=== PATIENT | female | born 1950 | race Caucasian/White ===

== ENCOUNTER → 2016-04-15 17:18 | Outpatient (CLI) | payer MEDICARE, OTHER | END | disposition home or self-care (01) | LOC: D.MAMMO 15:45 | DX: Z12.31 Encounter for screening mammogram for malignant neoplasm of breast (principal) ==

== ENCOUNTER → 2017-05-19 14:36 | Outpatient (CLI) | payer MEDICARE, OTHER | END | disposition home or self-care (01) | LOC: D.MAMMO 04-16 09:30 | DX: Z12.31 Encounter for screening mammogram for malignant neoplasm of breast (principal) ==

== ENCOUNTER 2018-07-09 09:00 | Outpatient (CLI) | payer MEDICARE, OTHER | END 2018-07-09 10:00 | disposition home or self-care (01) | LOC: D.MAMMO 09:00 | PROVIDERS: ATTEND Family Medicine | DX: Z12.31 Encounter for screening mammogram for malignant neoplasm of breast (principal) ==

== ENCOUNTER → 2018-07-20 11:02 | Outpatient (CLI) | payer MEDICARE, OTHER ==
[~2018-07-20 11:02] MED LIST: ASPIRIN81 MG PO; BETAPACE 80 MG80 MG PO; BISOPROLOL-HCTZ1 TA5 PO; HYDROCODON-ACE1 EA10 PO; LISINOPRIL20 MG PO; NORVASC5 MG PO; PLAVIX75 MG PO; XANAX0.25 MG PO
[2018-07-20 11:40] LABS: BASOPHILS 0.2 % (0-2); EOSINOPHILS 1.2 % (0-7); HEMATOCRIT 45.7 % (36.0-48.0); HEMOGLOBIN 16.4 g/dL (12-16); IMMATURE GRANULOCYTES 0.2 % (0-5); LYMPHOCYTES 28.8 % (15-50); MCH 34.2 pg (26.0-34.0); MCHC 35.9 g/dL (31.0-37.0); MCV 95.2 fL (80.0-100.0); MEAN PLATELET VOLUME 9.5 fL (7.4-10.4); MONOCYTES 8.1 % (2-11); NEUTROPHILS 61.5 % (40-80); PLATELET COUNT 253 10x3/uL (130-400)
[2018-07-20 11:49] LABS: ALBUMIN 3.5 g/dL (3.4-5.0); ANION GAP 15.1 mmol/L (8-16); BILIRUBIN - TOTAL 0.52 mg/dL (0.2-1.3); CALCIUM 9.6 mg/dL (8.5-10.1); CARBON DIOXIDE 29.4 mmol/L (21.0-32.0); CREATININE - SERUM 0.9 mg/dL (0.6-1.3); POTASSIUM - SERUM 3.5 mmol/L (3.5-5.1)
[2018-08-04 10:17] VITALS: BMI 24.3
== END | disposition home or self-care (01) ==
LOC: D.LAB 09:45 → D.CT 11:00 → D.LAB 11:02
PROVIDERS: ATTEND Internal Medicine Gastroenterology
DX: D49.0 Neoplasm of unspecified behavior of digestive system (principal)

== ENCOUNTER 2018-07-27 07:40 | Inpatient (IN) | payer MEDICARE, OTHER ==
[2018-07-26 12:20] LABS: BASOPHILS 0.2 % (0-2); EOSINOPHILS 1.4 % (0-7); HEMATOCRIT 42.7 % (36.0-48.0); HEMOGLOBIN 15.5 g/dL (12-16); LYMPHOCYTES 25.1 % (15-50); MCH 34.1 pg (26.0-34.0); MCHC 36.3 g/dL (31.0-37.0); MCV 93.8 fL (80.0-100.0); MEAN PLATELET VOLUME 9.5 fL (7.4-10.4); MONOCYTES 8.4 % (2-11); NEUTROPHILS 64.9 % (40-80); PLATELET COUNT 235 10x3/uL (130-400); RBC 4.55 10x6/uL (4.00-5.40); WBC 4.3 10x3/uL (4.8-10.8)
[2018-07-26 12:33] LABS: ANION GAP 10.3 mmol/L (8-16); CALCIUM 9.2 mg/dL (8.5-10.1); CARBON DIOXIDE 30.6 mmol/L (21.0-32.0); CREATININE - SERUM 0.9 mg/dL (0.6-1.3); POTASSIUM - SERUM 3.9 mmol/L (3.5-5.1)
[2018-07-27] VITALS (11 sets, daily range): BP systolic 100–121; BP diastolic 52–70; BMI 25.5
[~2018-07-27 07:40] MED LIST changes: -ASPIRIN81 MG PO; -BETAPACE 80 MG80 MG PO; -HYDROCODON-ACE1 EA10 PO; -PLAVIX75 MG PO
[2018-07-28 02:24] VITALS: BP 154/85
[2018-07-28 05:21] VITALS: BP 101/40
[2018-07-28 05:33] LABS: CALCIUM 8.1 mg/dL (8.5-10.1); CARBON DIOXIDE 25.8 mmol/L (21.0-32.0); CHLORIDE - SERUM 106 mmol/L (98-107); CREATININE - SERUM 0.8 mg/dL (0.6-1.3); POTASSIUM - SERUM 3.8 mmol/L (3.5-5.1); SODIUM 141 mmol/L (136-145); eGFR NON AFRICAN AMERICAN 75 mL/min (90-120)
[2018-07-28 06:12] LABS: CALC OSMOLALITY 279 mosm/kg (275-300); GLUCOSE 97 mg/dL (74-106); UREA NITROGEN 11 mg/dL (7-18)
[2018-07-28 08:13] LABS: BASOPHILS 0 % (0-2); EOSINOPHILS 0.2 % (0-7); HEMATOCRIT 33.2 % (36.0-48.0); HEMOGLOBIN 11.5 g/dL (12-16); IMMATURE GRANULOCYTES 0.2 % (0-5); MCHC 34.6 g/dL (31.0-37.0); MCV 95.1 fL (80.0-100.0); MEAN PLATELET VOLUME 9.9 fL (7.4-10.4); MONOCYTES 10.8 % (2-11); NEUTROPHILS 76.8 % (40-80); PLATELET COUNT 205 10x3/uL (130-400); RBC 3.49 10x6/uL (4.00-5.40); RDW 13.1 % (11.5-14.5); WBC 6.5 10x3/uL (4.8-10.8)
[2018-07-28 09:23] VITALS: BP 97/49
[2018-07-28 14:15] VITALS: BMI 25.5
[2018-07-28 18:07] VITALS: BP 132/64
[2018-07-28 22:28] VITALS: BP 117/62
[2018-07-29 05:02] VITALS: BP 124/74
[2018-07-29 06:45] LABS: BASOPHILS 0.2 % (0-2); EOSINOPHILS 1.8 % (0-7); HEMATOCRIT 31.9 % (36.0-48.0); HEMOGLOBIN 10.9 g/dL (12-16); IMMATURE GRANULOCYTES 0.2 % (0-5); LYMPHOCYTES 18.1 % (15-50); MCH 32.8 pg (26.0-34.0); MCHC 34.2 g/dL (31.0-37.0); MCV 96.1 fL (80.0-100.0); MEAN PLATELET VOLUME 9.6 fL (7.4-10.4); MONOCYTES 7.5 % (2-11); NEUTROPHILS 72.2 % (40-80); PLATELET COUNT 198 10x3/uL (130-400); RBC 3.32 10x6/uL (4.00-5.40); RDW 13.4 % (11.5-14.5)
[2018-07-29 07:01] LABS: CALC OSMOLALITY 284 mosm/kg (275-300); CALCIUM 7.7 mg/dL (8.5-10.1); CARBON DIOXIDE 24.6 mmol/L (21.0-32.0); CHLORIDE - SERUM 110 mmol/L (98-107); CREATININE - SERUM 0.6 mg/dL (0.6-1.3); GLUCOSE 78 mg/dL (74-106); SODIUM 144 mmol/L (136-145); UREA NITROGEN 10 mg/dL (7-18); eGFR NON AFRICAN AMERICAN > 90 mL/min (90-120)
[2018-07-29 07:04] LABS: POTASSIUM - SERUM 3.2 mmol/L (3.5-5.1)
[2018-07-29 08:45] VITALS: BP 109/57
[2018-07-29 12:45] VITALS: BP 111/75
--- NOTE | 2018-07-29 15:35 | MORECARE ---
CASE MANAGEMENT DISCHARGE SUMMARY PATIENT: HERMELINDO HATHAWAY UNIT: [id number] ADM DATE: 07/27/18 AGE: 68 : 48 SEX: F ROOM/BED: D.2215 AUTHOR: MARY,DOC PHYSICIAN: REFERRING PHYSICIAN: JERI BRODY MD DATE OF SERVICE: 07/29/18 Discharge Plan Patient Name: HERMELINOD HATHAWAY Facility: [facility]:[place] : 1950 Planned Disposition: Home Anticipated Discharge Date: Discharge Date: Expected LOS: Initial Reviewer: [email or web address] Initial Review Date: 07/27/2018 Generated: 07/29/18 4:35 pm Comments DCP- Discharge Planning Updated by [email or web address]: Radha Tong on 07/29/18 2:[address] Patient Name: HERMELINDO HATHAWAY Admission Status: Elective Accout number: [id number] Admission Date: 07-27-2018 : 1950 Admission Diagnosis: Attending: JERI BRODY Current LOS: 2 Anticipated DC Date: Planned Disposition: Home Primary Insurance: MEDICARE A & B Discharge Planning Comments: CM met with patient to complete initial dc planning assessment. CM educated patient on the CM role and verbal consent given by patient to complete assessment. Patient lives at home where she is independent with her care. At discharge patient plans to return to her daughters house for a little bit and feels this is a safe discharge. CM discussed availability of home health, rehab services, and medical equipment. Patient has a glucometer at home. IMM served and explained. Patient denied known discharge needs at this time. CM will continue to follow and will assist as needed with dc plans/needs. Supervisor [employer]: Radha Tong DCPIA - Discharge Planning Initial Assessment Updated by [email or web address]: Radha Tong on 07/29/18 3:29 pm * Is the patient Alert and Oriented? Yes * How many steps to enter\exit or inside your home? * PCP TUNISIAN * Pharmacy [facility] * Preadmission Environment Home with Family * ADLs Independent * Equipment Glucometer * List name and contact numbers for known caregivers / representatives who currently or will assist patient after discharge: MADAI PETERSON [phone] * Verbal permission to speak to the caregivers and representatives has been obtained from the patient. Yes * Community resources currently utilized None * Additional services required to return to the preadmission environment? No * Can the patient safely return to the preadmission environment? Yes * Has this patient been hospitalized within the prior 30 days at any hospital? No Coverage Notice Reviewer: [email or web address] Rusty Tong Notice Issued Date-Time: 07/29/2018 15:10 Notice Type: IM Discharge Notice Notice Delivered To: Patient Relationship to Patient: Reset Merchandiser Name: Delivery Method: HAND - Hand Delivered Jacquelyn Days: Prior Verbal Notification: Recipient Understood Notice: Yes Recipient Signature: Yes Med Rec Note Co-signed by Attending: Coverage Notice Comment: Patient Name: HERMELINDO HATHAWAY Page 70600 at 1535 All edits/amendments must be made on the electronic document DICTATION DATE: 07/29/181533 DIRECTOR INTERNAL AUDIT: LORNA 07/29/181533 RPT#: [id number] DC DATE: STATUS: ADM IN [facility] [address] [place] [address] END OF REPORT
[2018-07-29 17:06] VITALS: BP 94/59
[2018-07-29 20:52] VITALS: BP 108/74
[2018-07-30 01:02] VITALS: BP 124/58
[2018-07-30 04:05] LABS: BASOPHILS 0.2 % (0-2); EOSINOPHILS 3.4 % (0-7); HEMATOCRIT 32.7 % (36.0-48.0); HEMOGLOBIN 11.5 g/dL (12-16); LYMPHOCYTES 31.5 % (15-50); MCH 33.1 pg (26.0-34.0); MCHC 35.2 g/dL (31.0-37.0); MCV 94.2 fL (80.0-100.0); MEAN PLATELET VOLUME 9.3 fL (7.4-10.4); NEUTROPHILS 53.9 % (40-80); PLATELET COUNT 189 10x3/uL (130-400); RBC 3.47 10x6/uL (4.00-5.40); RDW 13.4 % (11.5-14.5)
[2018-07-30 04:17] LABS: CALC OSMOLALITY 287 mosm/kg (275-300); CALCIUM 7.8 mg/dL (8.5-10.1); CARBON DIOXIDE 28.4 mmol/L (21.0-32.0); CHLORIDE - SERUM 111 mmol/L (98-107); CREATININE - SERUM 0.6 mg/dL (0.6-1.3); GLUCOSE 93 mg/dL (74-106); SODIUM 146 mmol/L (136-145); eGFR NON AFRICAN AMERICAN > 90 mL/min (90-120)
[2018-07-30 04:19] LABS: UREA NITROGEN 5 mg/dL (7-18)
[2018-07-30 04:54] VITALS: BP 120/60
[2018-07-30 07:59] VITALS: BP 121/77
[2018-07-30] MEDS ORDERED: HYDROCODON-ACE1 EA10 PO (09:23)
--- NOTE | 2018-07-30 10:10 | OP ---
PATIENT NAME: HERMELINDO HATHAWAY MEDICAL RECORD: [id number] :[birth year] LOCATION:D.MS [id number] ADMISSION DATE:07/27/18 SURGEON: RITESH BRODY MD DATE OF OPERATION: 07/27/2018 PREOPERATIVE DIAGNOSES: 1. Hepatic flexure mass. 2. Hypertension. 3. Hypercholesterolemia. POSTOPERATIVE DIAGNOSES: 1. Hepatic flexure mass. 2. Hypertension. 3. Hypercholesterolemia. PROCEDURE: Hand-assisted laparoscopic right hemicolectomy. SURGEON: Ritesh Brody MD MAINTENANCE JOB TITLES: Shiloh Hanna. REPORT OF OPERATION: The patient's abdomen was prepped and draped in sterile fashion. A cutdown was made around the patient's umbilicus. Electrocautery was used to dissect through the subcutaneous tissues down to the fascia. The fascia was opened up in the midline and we penetrated the abdominal cavity. Once inside, the GelPort was inserted with a 5-mm trocar within it. After insufflation of the abdomen was obtained, then a 5-mm trocar was placed in the epigastrium and another was placed in the right subcostal region. The patient had some adhesions of the omentum down towards the pelvis and these were taken down using electrocautery. We then mobilized the right colon medially using electrocautery by taking down the white line of Toldt. While doing this, we mobilized the patient's hepatic flexure, we could see the tattooing from the recent colonoscopy and I could feel a palpable mass present in the lumen of the bowel. After we had the bowel mobilized medially then it was eviscerated through the wound. We transected the small bowel towards the terminal ileum using a 75 blue load DANNY stapler. The transverse colon was transected proximally using a 75 blue load DANNY stapler. The mesentery was then taken down with sequential clamp and tie technique using 3-0 silks. Once the bowel was removed, it was sent off for permanent specimen. A dsii-aj-azrm anastomosis was performed by making enterotomies on the transverse colon and the small bowel and firing a 75 blue load DANNY stapler through the openings. There was a good patent anastomosis present. The enterotomies were then closed with a 30 blue load TA stapler over side oversewed the staple lines using Lemberted 3-0 silks. The bowel was placed back into the abdominal cavity. A vigorous irrigation of the abdomen was performed and there was no sign of any bleeding present. There was evidence of 2 small cysts present on the most lateral aspect of the left lobe of the liver. There was no sign of any metastatic disease present in the abdominal cavity. At this point, the ports and insufflation were then removed. The midline fascia was closed with running #1 loop PDS times 2. The subcutaneous tissues were irrigated out with normal saline and the skin incisions were all closed with moiz. COMPLICATIONS: None. CONDITION: Stable. OPERATIVE REPORT [id number] HERMELINDO HATHAWAY ANESTHESIA: General endotracheal. BLOOD LOSS: 50 mL. TRANSINT:[id number] Voice Confirmation ID: [id number] DOCUMENT ID: [id number] RITESH BRODY MD at 1010 CC: PAUL HERNANDEZ MD and KAHLIL RIOS [phone] DICTATION DATE: 07/27/18 1215 FURNACE BUILDER: 07/27/18 1531 ADM IN [facility] [address] [id number]
--- NOTE | 2018-07-30 12:39 | MORECARE ---
CASE MANAGEMENT DISCHARGE SUMMARY PATIENT: HERMELINDO HATHAWAY UNIT: [id number] ADM DATE: 07/27/18 AGE: 68 : 48 SEX: F ROOM/BED: D.4255 AUTHOR: MARYDOC PHYSICIAN: REFERRING PHYSICIAN: JERI BRODY MD DATE OF SERVICE: 07/30/18 Discharge Plan Patient Name: HERMELINDO HATHAWAY Facility: [facility]:[place] : 1950 Planned Disposition: Home Anticipated Discharge Date: Discharge Date: 07/30/2018 Expected LOS: Initial Reviewer: [email or web address] Initial Review Date: 07/27/2018 Generated: 07/30/18 1:39 pm Comments DCP- Discharge Planning Updated by [email or web address]: Radha Tong on 07/30/18 11:[address] Patient discharged home, no needs DCP- Discharge Planning Updated by [id number]: Radha Tong on 07/29/18 2:[address] Patient Name: HERMELINDO HATHAWAY Admission Status: Elective Accout number: [id number] Admission Date: 07-27-2018 : 1950 Admission Diagnosis: Attending: JERI BRODY Current LOS: 2 Anticipated DC Date: Planned Disposition: Home Primary Insurance: MEDICARE A & B Discharge Planning Comments: CM met with patient to complete initial dc planning assessment. CM educated patient on the CM role and verbal consent given by patient to complete assessment. Patient lives at home where she is independent with her care. At discharge patient plans to return to her daughters house for a little bit and feels this is a safe discharge. CM discussed availability of home health, rehab services, and medical equipment. Patient has a glucometer at home. IMM served and explained. Patient denied known discharge needs at this time. CM will continue to follow and will assist as needed with dc plans/needs. Ceo And Founder: Radha Tong DCPIA - Discharge Planning Initial Assessment Updated by [email or web address]: Radha Tong on 07/29/18 3:29 pm * Is the patient Alert and Oriented? Yes * How many steps to enter\exit or inside your home? * PCP [place] * Pharmacy [facility] * Preadmission Environment Home with Family * ADLs Independent * Equipment Glucometer * List name and contact numbers for known caregivers / representatives who currently or will assist patient after discharge: MADAI PETERSON [phone] * Verbal permission to speak to the caregivers and representatives has been obtained from the patient. Yes * Community resources currently utilized None * Additional services required to return to the preadmission environment? No * Can the patient safely return to the preadmission environment? Yes * Has this patient been hospitalized within the prior 30 days at any hospital? No Coverage Notice Reviewer: [email or web address] Rusty Tong Notice Issued Date-Time: 07/29/2018 15:10 Notice Type: IM Discharge Notice Notice Delivered To: Patient Relationship to Patient: Executive Coordinator Name: Delivery Method: HAND - Hand Delivered Jacquelyn Days: Prior Verbal Notification: Recipient Understood Notice: Yes Recipient Signature: Yes Med Rec Note Co-signed by Attending: Coverage Notice Comment: Last DP export: 07/29/18 2:35 p Patient Name: HERMELINDO HATHAWAY Page [phone] at 1239 All edits/amendments must be made on the electronic document DICTATION DATE: 07/30/18 1239 DISTRIBUTION MANAGER: LORNA 07/30/18 1239 RPT#: [id number] DC DATE:07/30/18 STATUS: DIS IN [facility] [address] [place] [address] END OF REPORT
== END 2018-07-30 10:40 | disposition home or self-care (01) | DRG 331 ==
LOC: D.SDCHOLD 07:40 → D.MS 13:41
PROVIDERS: ADMIT Surgery
PROC: 0DBF0ZZ Excision of Right Large Intestine, Open Approach (ICD-10-PCS; principal; 2018-07-27 09:30)
DX: K63.5 Polyp of colon (principal); I10 Essential (primary) hypertension; E78.5 Hyperlipidemia, unspecified

== ENCOUNTER 2018-08-03 17:31 | Inpatient (IN) | payer MEDICARE, OTHER ==
[~2018-08-03] VITALS: Ht 167.6 cm; Wt 71.8 kg
--- NOTE | ~2018-08-03 | HEMODYNAMI ---
PATIENT:HERMELINDO HATHAWAY MEDICAL RECORD: [id number] : [birth year] LOCATION:[facility] D2125 ADMISSION DATE: 08/04/18 Generatedon:08/05/201812:37 Patient name: HERMELINDO HATHAWAY Patient #: [id number] SSN: DO B: 1950 Date of study: 08/05/2018 Page: Of Hemodynamic Procedure Report Patient Data Patient Demographics Procedure consent was obtained First Name: HERMELINDO Gender: Female Last Name: MAG : 1950 [facility] Initial: ONUR Age: 68 year(s) Patient #: [id number] Race: Unknown Additional ID: [id number] Contact details Address: [address] [place] [address] [address] State: [place] City: [place] Zip code: [address] Past Medical History Allergies Allergen Reaction Date Comments Reported Other allergy 08/05/2018 BEE STINGS, WASP VENOM Admission Admission Data Admission Date: 08/04/2018 Admission Time: 15:59 Room #: D.2125 Lab Results Lab Result Date: 08/04/2018 Lab Result Time: 0:00 Biochemistry Name Units Result Min Max BUN mg/dl 11 --(-*--)-- 7 18 Creatinine mg/dl 0.7 --(*---)-- 0.6 1.3 Potassium mmol/l 2.8 *-(----)-- 3.5 5.1 CBC Name Units Result Min Max Hematocrit % 36.6 *-(----)-- 42 54 Hemoglobin g/dl 13.3 -*(----)-- 13.5 17.5 Procedure Procedure Types Cath Procedure Diagnostic Procedure FFR/IVUS Intra-Coronary IVUS Initial Sedation Charges Moderate Sedation up to 15 minutes PCI Procedure Coronary Stent Coronary Stent Initial Procedure Description Procedure Date Procedure Date: 08/05/2018 Procedure Start Time: 12:20 Procedure End Time: 12:36 Procedure Staff Name Function Antony Camacho MD Performing Physician Cristóbal Suit RT Bindery Production Manager Kelsie Carr RT Monitor Trevin Brown RT Scrub Myrtle Hathaway RN Nurse Procedure Data Cath Procedure Fluoroscopy Diagnostic fluoroscopy Total fluoroscopy Time: 3.4 time: 3.4 min min Diagnostic fluoroscopy Total fluoroscopy dose: 231 dose: 231 mGy mGy Contrast Material Contrast Material Type Amount (ml) Isovue 300 81 Entry Location Entry Primary Successful Side Size Upsize Upsize Entry Closure Succes sful Closure Location (Fr) 1 (Fr) 2 (Fr) Remarks Device Remarks Femoral Left 6 Fr Exoseal artery Short Estimated blood loss: 10 ml Diagnostic catheters Device Type Used For End Catheter Placement DIAGNOSTIC Pigtail 5Fr Procedure catheter ([id number]) Procedure Complications No complications Procedure Medications Medication Administration Route Dosage 0.9% NaCl I.V. 100 ml/hr Oxygen etCO2 Nasal cannula 2 l/min Lidocaine 2% added to field 20 Heparin Flush Bag added to field 2 bags (1000units/500ml NS) Versed I.V. 2 mg Fentanyl I.V. 50 mcg Heparin Bolus I.V. 4000 units Hemodynamics Rest HGB: 13.3 (g/dl) Heart Rate: 60 (bpm) Snapshots Pre Cath Intra NCS Post Cath Vital Signs Time Heart Resp SPO2 etCO2 NIBP (mmHg) Rhythm Pain Sedation Rate (ipm) (%) (mmHg) Status Level (bpm) 12:07:04 59 14 100 22 160/87(107) SB 0 (11) 10(A) , No pain 12:11:28 56 14 100 25.9 154/80(135) SB 0 (11) 10(A) , No pain 12:15:48 54 19 100 17.8 144/78(96) SB 0 (11) 10(A) , No pain 12:20:09 55 19 100 28 145/76(108) SB 0 (11) 9(A) , No pain 12:24:28 54 20 100 20 141/76(104) SB 0 (11) 9(A) , No pain 12:28:49 55 20 100 20 138/74(95) SB 0 (11) 10(A) , No pain 12:33:48 57 20 100 14.8 Measuring SB 0 (11) 10(A) , No pain 12:33:52 57 20 100 28.2 139/78(104) SB 0 (11) 10(A) , No pain Medications Time Medication Route Dose Verified Delivered Reason Notes Effectiveness by by 12:07:28 0.9% NaCl I.V. 100 Antony Myrtle used for ml/hr Doug Hathaway insight leader 12:07:35 Oxygen etCO2 2 Antony Myrtle used for Nasal l/min Doug Hathaway procedure cannula RN 12:07:40 Lidocaine 2% added 20ml Antony Antony for local to vial Doug Camacho MD anesthetic field 12:07:44 Heparin Flush added 2 Antony Antony used for Bag to bags Doug Camacho MD procedure (1000units/500ml field NS) 12:16:07 Fentanyl I.V. 50 Antony Myrtle for sedation mcg Doug Hathaway RN 12:16:58 Versed I.V. 2 mg Antony Myrtle for sedation Doug Hathaway RN 12:26:48 Heparin Bolus I.V. 4000 Antony Myrtle for verif ied units Doug Hathaway anticoagulation with Dr. ROZINA Camacho Procedure Log Time Note 11:55:35 Cristóbal Gooden RT(R) sent for patient. Start room use. 12:04:43 Signed procedure consent form obtained from patient. 12:04:45 Diagnostic Cath status Elective 12:04:46 Time tracking: Regular hours (M-F 7:00 - 5:00) 12:04:49 Plan of Care:Hemodynamics will remain stable., Cardiac rhythm will remain stable., Comfort level will be maintained., Respiratory function will remain adequate., Patient/ family verbilizes understanding of procedure., Procedure tolerated without complication., Recovers from procedure without complications.. 12:04:55 Patient received from Med II to CCL 1 Alert and oriented. Tansferred to table in Supine position. 12:04:56 Warm blankets applied, and becca hugger turned on for patient comfort. 12:04:56 Correct patient and procedure confirmed by team. 12:04:58 ECG and BP/O2 sat monitors applied to patient. 12:05:03 Vital chart was started 12:05:07 Rhythm: sinus bradycardia 12:05:08 Full Disclosure recording started 12:05:10 Pre-procedure instructions explained to patient. 12:05:10 Pre-op teaching completed and patient verbalized understanding. 12:05:11 Family in patients room. 12:05:12 Patient NPO since Midnight. 12:05:28 Patient allergic to Other allergyBEE STINGS, WASP VENOM 12:05:29 Is patient on blood thinner?Yes 12:05:32 ACC The patient was administered the following blood thiners within the last 24 hours: ACCPlavix 12:05:34 Patient diabetic? No. 12:05:37 Patient not . Patient is over age 55. 12:06:09 Previous problem with sedation/anesthesia? No ? 12:06:10 Snore? Yes 12:06:12 Sleep apnea? No 12:06:13 Deviated septum? No 12:06:15 Opens mouth fully? Yes 12:06:16 Sticks out tongue? Yes 12:06:19 Airway obstruction? No ? 12:06:30 Dentures? No ? 12:06:36 Patient pain scale 0/10 ?. 12:06:44 IV patent on arrival in left forearm with 0.9% NaCl at [facility]. 12:06:49 Lab results completed and on chart. 12:06:53 Left groin area was prepped with chlora-prep and draped in sterile fashion 12:06:54 Alarms reviewed by R. N. 12:06:54 Sharps counted by scrub and verified by R.N. 12:07:13 Use device set CATH PACK 12:07:14 ACIST Syringe (23912) opened to sterile field. 12:07:14 ACIST Hand Control (23652) opened to sterile field. 12:07:14 ACIST Manifold (11993) opened to sterile field. 12:07:15 Medline Cath Pack ([id number]) opened to sterile field. 12:07:15 Bag Decanter (2002S) opened to sterile field. 12:07:16 DIAGNOSTIC WIRE .035 260cm J wire (803095) opened to sterile field. 12:07:28 0.9% NaCl 100 ml/hr I.V. was administered by Myrtle Hathaway RN; used for procedure; 12:07:35 Oxygen 2 l/min etCO2 Nasal cannula was administered by Myrtle Hathaway RN; used for procedure; 12:07:35 SHEATH 6FR Platte (SOV731) opened to sterile field. 12:07:35 INFLATOR Merit BasixCompak (JS2990) opened to sterile field. 12:07:35 CHOICE PT Extra Support 182cm wire ([id number]) opened to sterile field. 12:07:40 Baseline sample Acquired. 12:07:40 Lidocaine 2% 20ml vial added to field was administered by Antony Camacho MD; for local anesthetic; 12::44 Heparin Flush Bag (1000units/500ml NS) 2 bags added to field was administered by Antony Camacho MD; used for procedure; 12:08:51 Pre procedure: left dorsailis pedis pulse 1+ Palpable, but thready & weak; easily obliterated 12:15:24 --------ALL STOP TIME OUT------ 12:15:24 Final Timeout: patient, procedure, and site verified with staff and physician. All members of the team are in agreement. 12:15:26 Left groin site verified by team. 12:15:30 Maximum allowable Isovue 300 dose 300ml. Physician notified. (300ml for normal creatinines. For patients with creatinine of 1.7 or higher multiply weight(kg) x 5 divided by creatinine.) 12:15:33 Fire Safety Assessment: A--An alcohol-based skin anteseptic being used preoperatively., C--Open oxygen or nitrous oxide is being used., D--An ESU, laser, or fiber-optic light is being used. 12:15:36 Physical assessment completed. ASA score P 2 - A patient with mild systemic disease as per Antony Camacho MD. 12:15:40 Sedation plan: IV Moderate Sedation Medication:Versed, Fentanyl 12:16:07 Fentanyl 50 mcg I.V. was administered by Myrtle Hathaway RN; for sedation; 12:16:58 Versed 2 mg I.V. was administered by Myrtle Hathaway RN; for sedation; 12:19:50 Procedure started. 12:19:52 Zero performed for pressure channel P1 12:20:20 Local anesthetic to left femerol artery with Lidocaine 2% by Antony Camacho MD.INITIAL ACCESS ONLY 12:20:49 A 6 Fr Short sheath was inserted into the Left Femoral artery 12:21:12 GUIDE 6FR XBLAD 4.0 catheter ([id number]) opened to sterile field. 12:21:13 6 Fr XBLAD 4 guide catheter was inserted over the wire 12:21:44 [place] IVUS Catheter ([id number]) opened to sterile field. 12:22:06 CHOICE ES 182 wire advanced. 12:22:12 Wire advanced across lesion. 12:25:05 IVUS catheter advanced over wire. 12:25:07 IVUS pass to LAD lesion performed. 12:25:07 IVUS catheter removed over wire. 12:25:44 Wire redirected to CIRC. 12:26:03 Wire advanced across lesion. 12::48 Heparin Bolus 4000 units I.V. was administered by Myrtle Hathaway RN; for anticoagulation; verified with Dr. Camacho 12:27:30 Place stent Inflation Number: 1 A INTEGRITY RX 2.5 x 12 stent ([id number]) was prepped and advanced across the Prox CX. The stent was deployed at 9 GRAY for 0:10 (min:sec). 12:27:45 Stent catheter was removed intact over wire. 12:27:45 Wire removed. 12:27:46 Guide catheter removed. 12:28:04 A DIAGNOSTIC Pigtail 5Fr catheter ([id number]) was advanced over the wire and used for Procedure. 12:31:49 Left leg runoff performed. 12:31:50 Right leg runoff performed. 12:31:54 Catheter removed. 12:31:58 EXOSEAL 6Fr (EX600) opened to sterile field. 12:32:34 Sheath removed intact; hemostasis achieved with Exoseal to the Left Femoral artery. 12:32:43 Procedure ended.(Physican Out) 12:33:20 Fluoroscopy time 03.40 minutes. 12:33:24 Flurop Dose total: 231 12:33:24 Fluoroscopy dose: 231 mGy 12:33:28 Contrast amount:Isovue 300 81ml. 12:33:29 Sharps counted by scrub and verified by R.N. 12:33:32 Post-op/insertion site Left Femoral artery dressed using a 4 x 4 and Tegaderm. 12:33:34 Post-procedure physical assessment completed. ASA score P 2 - A patient with mild systemic disease as per Antony Camacho MD. 12:33:36 Post procedure rhythm: sinus bradycardia 12:33:43 Estimated blood loss: 10 ml 12:33:44 Post procedure instruction explained to patient.Patient verbalizes understanding. 12:33:45 Patient needs reinforcement of post procedure teaching. 12:34:32 Procedure type changed to Cath procedure, Diagnostic procedure, FFR/IVUS, Intra-Coronary IVUS Initial, Sedation Charges, Moderate Sedation up to 15 minutes, PCI procedure, Coronary Stent, Coronary Stent Initial 12:35:56 Procedure Complication : No complications 12:35:58 Vital chart was stopped 12:35:58 See physician's report for complete and final results. 12:36:01 Report given to [facility]. 12:36:03 Patient transfered to [facility] with Bed. 12:36:05 Procedure ended. 12:36:05 Full Disclosure recording stopped 12:36:08 End room use (Document Last) Intervention Summary Intervention Notes Time ActionType Lesion and Equipment Action# Pressure Duration Attributes Used 12:27:30 Place stent Prox CX INTEGRITY RX 1 9 00:10 2.5 x 12 stent ([id number]) Device Usage Item Name Manufacture Quantity Catalog Number Hospital Part Current Mini [facility] Lot# / Charge Number Stock Stock Serial# Code ACIST Acist 1 72613 557677 381140 238197 20 Syringe Medical (49988) Systems Inc ACIST Hand Acist 1 39625 046565 838036 343348 5 Control Medical (75245) Systems Inc ACIST Acist 1 23389 839437 398829 889130 5 Manifold Medical (29755) Systems Inc Medline Cath Medline 1 [id number] 715332 67863 899901 5 Pack ([id number]) Bag Decanter Microtek 1 2001S 004365 02748 793611 5 (2001S) Medical Inc. DIAGNOSTIC St Yusef 1 509357 725951 562685 961354 30 WIRE .035 260cm J wire (326457) SHEATH 6FR Terumo 1 GTL591 796964 037852 800567 40 Platte (CKM001) INFLATOR Merit 1 LK3408 797353 911931 199435 15 [facility] Medical BasixCompak (ND7026) CHOICE PT [place] 1 [id number] 049200 160118 339953 5 Extra Scientific Support 182cm wire ([id number]) [place] 1 72883O 199709 117721 516681 8 [place] IVUS Catheter (26626R) INTEGRITY RX Medtronic 1 [id number] 436229 556034 849968 5 [id number] 2.5 x 12 stent ([id number]) EXOSEAL 6Fr Cardinal 1 EX600 065792 412668 836198 10 (EX600) Health DIAGNOSTIC Cardinal 1 [id number] 733006 204129 750435 5 Pigtail 5Fr Health catheter (982444W) GUIDE 6FR Cardinal 1 [id number] 766780 705486 524615 3 XBLAD 4.0 Health catheter ([id number]) Signature Audit [place] Stage Time Signature Unsigned Intra-Procedure 08/05/2018 Kelsie Carr 12:37:31 PM RT(R) Signatures Monitor : Kelsie Carr Signature : RT Date : Time : [address] [address]
--- NOTE | ~2018-08-03 | OP ---
PATIENT NAME: HERMELINDO HATHAWAY MEDICAL RECORD: [id number] :46 LOCATION:D.M2 D.2125 ADMISSION DATE:08/04/18 SURGEON: FRANKIE GRADY MD DATE OF OPERATION: 08/05/2018 PROCEDURES: 1. PTCA stent left circumflex. 2. Intravascular ultrasound. 3. Selective coronary angiography. INDICATION: Angina and coronary artery disease. PROCEDURE IN DETAIL: After informed consent was obtained and after a detailed description of the risks, benefits as well as alternative therapies, the patient elected to proceed with angiogram and angioplasty. The left femoral area was prepped and draped in normal sterile fashion. Left femoral artery was cannulated via modified Seldinger technique with placement of 6-[place] sheath. All catheters exchanged through this sheath. FINDINGS: The left circumflex has 80% stenosis in the mid vessel. This was addressed with a 2.5 x 12 mm Integrity stent. There was questionable stenosis of the left anterior descending; however, intravascular ultrasound revealed that this is no greater than 50%. OVERALL IMPRESSION: Successful percutaneous transluminal coronary angioplasty stent of the left circumflex going from 80% initial stenosis to 0% residual. TRANSINT:[id number] Voice Confirmation ID: [id number] DOCUMENT ID: [id number] FRANKIE GRADY MD CC: KAHLIL RIOS [id number] DICTATION DATE: 08/05/18 1238 PANTRY STEWARD/STEWARDESS: 08/05/18 1737 ADM IN [facility] [address] [id number]
--- NOTE | ~2018-08-03 | EC ---
PATIENT:HERMELINDO HATHAWAY DATE OF SERVICE: 08/04/18 SEX: F MEDICAL RECORD: [id number] DATE OF : 46 LOCATION:D.M2 D.212 AGE OF PATIENT: 68 ADMISSION DATE: 08/04/18 REFERRING PHYSICIAN: INTERPRETING PHYSICIAN: FRANKIE CAMACHO MD ECHOCARDIOGRAM REPORT ECHO CHARGES 4 ECHO COMPLETE Date: 08/04/18 CLINICAL DIAGNOSIS: A-FIB/PALPITATIONS ECHOCARDIOGRAPHIC MEASUREMENTS (adult normal given) AC root (d.<3.7cm) 3.0 cm LV Septum d (<1.2 cm> 1.2 cm Valve Excursion 1.9 cm LV Septum (systole) 1.9 cm Left Atria (s.<4.0cm> 3.0 cm LVPW d(<1.2cm) 1.5 cm RV (d.<2.3cm) 2.6 cm LVPW (sytole) 1.7 cm LV diastole(<5.6CM) 3.5 cm MV E-F(>70mm/sec) cm LV systole 2.0 cm LVOT Diameter 1.9 cm MV exc.(>10mm) cm Est.ejection fraction (50-75%) % DOPPLER: LVIT cm/sec A cm/sec E 87.0 cm/sec LA cm/sec RVSP 29.0 mmHg LVOT 86.0 cm/sec AOP1/2T m/s Asc. Ao 168 cm/sec RVOT 63.0 cm/sec RA cm/sec PA 85.0 cm/sec AV Gradient Peak 11.3 mmHg AV Mean 5.0 mmHg AV Area 1.3 cm MV Gradient Peak 4.1 mmHg MV Mean 1.6 mmHg MV Area cm COMMENTS: Slitter Helper: Oniel VILLAROE Solar Energy Technician: 1 Dr. Camacho TAPE# PACS Pericardial Effusion N DATE OF SERVICE: 08/04/2018 PROCEDURE: Echocardiogram. FINDINGS: 1. Left ventricular chamber size is mildly dilated. Left ventricular systolic function is mild to moderately reduced, overall ejection fraction in the 35% range. 2. Left atrium, right atrium, and right ventricle chamber sizes are within normal limits. ECHOCARDIOGRAM REPORT [id number] HERMELINDO HATHAWAY 3. Valvular structures have normal structure and motion. 4. Doppler interrogation reveals pjuz-ao-ayvxrjxq mitral regurgitation, moderate tricuspid regurgitation, no other valvular insufficiency or stenosis. Pulmonary systolic pressure is estimated at 29 mmHg. 5. No evidence of pericardial effusion or left ventricular thrombus. TRANSINT:[id number] Voice Confirmation ID: [id number] DOCUMENT ID: [id number] FRANKIE CAMACHO MD CC: [id number] DICTATION DATE: 08/05/1849 PARCEL POST CARRIER: 08/05/18 09 ADM IN [facility] [address] [id number]
--- NOTE | ~2018-08-03 | OP ---
PATIENT NAME: HERMELINDO HATHAWAY MEDICAL RECORD: [id number] :46 LOCATION:D.M2 D.2125 ADMISSION DATE:08/03/18 SURGEON: FRANKIE GRADY MD DATE OF OPERATION: 08/04/2018 PROCEDURES: 1. PTCA stent RCA. 2. Left heart catheterization. 3. Selective coronary angiography. 4. Left ventriculogram. INDICATION: Atrial fibrillation, angina, and coronary artery disease. PROCEDURE PERFORMED: After informed consent was obtained and after a detailed description of risks, benefits as well as alternative therapies, the patient elected to proceed with angiogram and angioplasty. The right femoral area was prepped and draped in normal sterile fashion. Right femoral artery was cannulated via modified Seldinger technique with placement of 6-Danish sheath. All catheters exchanged through this sheath. FINDINGS: The left ventriculogram was performed in a standard 30-degree DOWNEY view, reveals good cardiac wall motion throughout all segments. Overall ejection fraction estimated 60%. SELECTIVE CORONARY ANGIOGRAPHY: 1. Left main is with no significant angiographic disease. 2. Left anterior descending has moderate irregularities, questionable stenosis proximally would be better delineated by intravascular ultrasound. 3. Left circumflex has 70% to 80% stenosis in mid vessel. 4. Right coronary artery has 80% stenosis in the proximal vessel confirmed by intravascular ultrasound rhythm. PTCA STENT OF THE RCA: The stent used was a 4.5 x 28 mm Wahl Ultra stent. Result was 0% residual stenosis. OVERALL IMPRESSION: Successful percutaneous transluminal coronary angioplasty stent of the right coronary artery going from 80% initial stenosis to 0% residual. PLAN: For PTCA stent of the left circumflex and intravascular ultrasound of the LAD in the a.m. TRANSINT:[id number] Voice Confirmation ID: [id number] DOCUMENT ID: [id number] FRANKIE GRADY MD CC: [id number] DICTATION DATE: 08/04/18 1257 CHILD CARE DIRECTOR: 08/04/18 1413 ADM IN [id number] [place] [address]
--- NOTE | ~2018-08-03 | HEMODYNAMI ---
PATIENT:HERMELINDO HATHAWAY MEDICAL RECORD: [id number] : 46 [facility] D.2125 [id number] ADMISSION DATE: 08/03/18 Generatedon:08/04/201813:10 Patient name: HERMELINDO HATHAWAY Patient #: [id number] SSN: DO B: 1950 Date of study: 08/04/2018 Page: Of Hemodynamic Procedure Report Patient Data Patient Demographics Procedure consent was obtained First Name: HERMELINDO Gender: Female Last Name: MAG : 1950 [facility] Initial: ONUR Age: 68 year(s) Patient #: [id number] Race: Unknown Additional ID: [id number] Contact details Address: [address] [place] [address] DRIVE State: [place] City: [facility] Zip code: [address] Past Medical History Allergies: No known allergies Admission Admission Data Admission Date: 08/03/2018 Admission Time: 18:03 Room #: D.2125 Lab Results Lab Result Date: 08/04/2018 Lab Result Time: 0:00 Biochemistry Name Units Result Min Max BUN mg/dl 11 --(-*--)-- 7 18 Creatinine mg/dl 0.7 --(*---)-- 0.6 1.3 Potassium mmol/l 2.8 *-(----)-- 3.5 5.1 CBC Name Units Result Min Max Hematocrit % 36.6 *-(----)-- 42 54 Hemoglobin g/dl 13.3 -*(----)-- 13.5 17.5 Procedure Procedure Types Cath Procedure Diagnostic Procedure C [facility] w/Coronaries Sedation Charges Moderate Sedation up to 15 minutes PCI Procedure Coronary Stent Coronary Stent Initial Procedure Description Procedure Date Procedure Date: 08/04/2018 Procedure Start Time: 12:39 Procedure End Time: 12:55 Procedure Staff Name Function Jona Paz RT Scrub Antony Camacho MD Performing Physician Kelsie Carr RT Monitor Myrtle Hathaway RN Nurse Procedure Data Cath Procedure Fluoroscopy Diagnostic fluoroscopy Total fluoroscopy Time: 3.1 time: 3.1 min min Diagnostic fluoroscopy Total fluoroscopy dose: 253 dose: 253 mGy mGy Contrast Material Contrast Material Type Amount (ml) Isovue 300 69 Entry Location Entry Primary Successful Side Size Upsize Upsize Entry Closure Succes sful Closure Location (Fr) 1 (Fr) 2 (Fr) Remarks Device Remarks Femoral Right 5 Fr 6 Fr Exoseal artery Short Estimated blood loss: 10 ml Diagnostic catheters Device Type Used For End Catheter Placement MULTIPACK Pigtail 5 Fr Procedure catheter MULTIPACK JL 4.0 5Fr Procedure catheter MULTIPACK 3DRC 5Fr Procedure catheter Procedure Complications No complications Procedure Medications Medication Administration Route Dosage 0.9% NaCl I.V. 100 ml/hr Oxygen etCO2 Nasal cannula 2 l/min Lidocaine 2% added to field 20 Heparin Flush Bag added to field 2 bags (1000units/500ml NS) Versed I.V. 2 mg Fentanyl I.V. 50 mcg Heparin Bolus I.V. 4000 units Lopressor I.V. 5 mg Plavix P.O. 75 mg Hemodynamics Rest HGB: 13.3 (g/dl) Heart Rate: 79 (bpm) Snapshots Pre Cath Intra NCS Post Cath Vital Signs Time Heart Resp SPO2 etCO2 NIBP (mmHg) Rhythm Pain Sedation Rate (ipm) (%) (mmHg) Status Level (bpm) 12:27:24 95 14 98 14 141/91(114) A-Fib 0 (11) 10(A) , No pain 12:31:40 98 19 100 18.6 150/105(136) A-Fib 0 (11) 10(A) , No pain 12:35:58 97 21 100 17.9 134/99(123) A-Fib 0 (11) 10(A) , No pain 12:41:32 102 14 98 32.8 120/91(103) A-Fib 0 (11) 9(A) , No pain 12:46:35 95 17 97 35.1 125/91(108) A-Fib 0 (11) 9(A) , No pain 12:50:49 53 14 99 35.8 116/79(92) A-Fib 0 (11) 9(A) , No pain 12:56:03 59 18 100 32.1 126/80(98) A-Fib 0 (11) 10(A) , No pain Medications Time Medication Route Dose Verified Delivered Reason Notes Effectiveness by by 12:30:27 0.9% NaCl I.V. 100 Antony Myrtle used for ml/hr Doug Hathaway sewing machine tester 12:30:33 Oxygen etCO2 2 Antony Myrtle used for Nasal l/min Doug Hathaway procedure cannula RN 12:30:39 Lidocaine 2% added 20ml Antony Antony for local to vial Doug Camacho MD anesthetic field 12:30:44 Heparin Flush added 2 Antony Antony used for Bag to bags Doug Camacho MD procedure (1000units/500ml field NS) 12:36:06 Versed I.V. 2 mg Antony Myrtle for sedation Doug Hathaway RN 12:36:13 Fentanyl I.V. 50 Antony Myrtle for sedation mcg Doug Hathaway RN 12:44:27 Heparin Bolus I.V. 4000 Antony Myrtle for verif ied units Doug Hathaway anticoagulation with Dr. ROZINA Camacho 12:46:45 Lopressor I.V. 5 mg Antony Myrtle Per physician Doug Hathaway RN 12:56:52 Plavix P.O. 75 mg Antony Myrtle for Doug Hathaway antiplatelet RN therapy Procedure Log Time Note 11:56:01 Signed procedure consent form obtained from patient. 11:56:02 Diagnostic Cath status Elective 11:56:03 Time tracking: Regular hours (M-F 7:00 - 5:00) 11:56:11 Plan of Care:Hemodynamics will remain stable., Cardiac rhythm will remain stable., Comfort level will be maintained., Respiratory function will remain adequate., Patient/ family verbilizes understanding of procedure., Procedure tolerated without complication., Recovers from procedure without complications.. 11:56:22 Patient allergic to No known allergies 11:58:26 Lab Result : Creatinine 0.7 mg/dl 11:58:26 Lab Result : Hemoglobin 13.3 g/dl 11:58:26 Lab Result : Potassium 2.8 mmol/l 11:58:26 Lab Result : BUN 11 mg/dl 11:58:27 Lab Result : Hematocrit 36.6 % 11:58:55 DR. CAMACHO AWARE OF LABS 12:01:07 Myrtle Hathaway RN sent for patient. Start room use. 12:17:30 Patient received from Med II to CCL 1 Alert and oriented. Tansferred to table in Supine position. 12::31 Correct patient and procedure confirmed by team. 12::31 Warm blankets applied, and becca hugger turned on for patient comfort. 12::32 ECG and BP/O2 sat monitors applied to patient. 12:26:09 Vital chart was started 12:30: Baseline sample Acquired. 12:30:27 0.9% NaCl 100 ml/hr I.V. was administered by Myrtle Hathaway RN; used for procedure; 12:: Rhythm: atrial fibrillation 12::32 Full Disclosure recording started 12::33 Pre-op teaching completed and patient verbalized understanding. 12::33 Pre-procedure instructions explained to patient. 12::33 Oxygen 2 l/min etCO2 Nasal cannula was administered by Myrtle Hathaway RN; used for procedure; 12:30:36 Family in patients room. 12:30:37 Patient NPO since Midnight. 12:30:39 Lidocaine 2% 20ml vial added to field was administered by Antony Camacho MD; for local anesthetic; 12:30:40 Is patient on blood thinner?Yes 12:30:44 Heparin Flush Bag (1000units/500ml NS) 2 bags added to field was administered by Antony Camacho MD; used for procedure; 12:30:47 PRE LOADED YESTERDAY 12:31:24 Patient diabetic? No. 12:31:28 Previous problem with sedation/anesthesia? No ? 12:31:29 Snore? Yes 12:31:31 Sleep apnea? No 12:31:32 Opens mouth fully? Yes 12:31:32 Deviated septum? No 12:31:33 Sticks out tongue? Yes 12:31:35 Airway obstruction? No ? 12:31:36 Dentures? No ? 12:34:27 Pre procedure: right dorsailis pedis pulse 2+ Normal; easily identifiable; not easily obliterated 12:34:30 Patient pain scale 0/10 ?. 12:34:40 IV patent on arrival in left hand with 0.9% NaCl at [facility]. 12:34:42 Lab results completed and on chart. 12:34:45 Right groin area was prepped with chlora-prep and draped in sterile fashion 12:34:46 Sharps counted by scrub and verified by R.N. 12:34:46 Alarms reviewed by RGiorgi N. 12:35:18 Use device set Femoral Dx 12:35:19 ACIST Syringe (36610) opened to sterile field. 12:35:21 Medline Cath Pack ([id number]) opened to sterile field. 12:35:23 Bag Decanter (2002S) opened to sterile field. 12:35:24 ACIST Manifold (59599) opened to sterile field. 12:35:25 Tegaderm 4 x 4 (1626W) opened to sterile field. 12:35:25 ACIST Hand Control (94662) opened to sterile field. 12:35:27 DIAGNOSTIC WIRE .035 260cm J wire (325865) opened to sterile field. 12:35:28 DIAGNOSTIC Multipack 5Fr catheter set (PH1676) opened to sterile field. 12:35:29 SHEATH 5FR Kiefer (DUO956) opened to sterile field. 12:35:43 Final Timeout: patient, procedure, and site verified with staff and physician. All members of the team are in agreement. 12:35:43 --------ALL STOP TIME OUT------ 12:35:45 Right groin site verified by team. 12:35:47 Maximum allowable Isovue 300 dose 300ml. Physician notified. (300ml for normal creatinines. For patients with creatinine of 1.7 or higher multiply weight(kg) x 5 divided by creatinine.) 12:35:52 Fire Safety Assessment: A--An alcohol-based skin anteseptic being used preoperatively., C--Open oxygen or nitrous oxide is being used., D--An ESU, laser, or fiber-optic light is being used. 12:35:58 Physical assessment completed. ASA score P 2 - A patient with mild systemic disease as per Antony Camacho MD. 12:36:02 Sedation plan: IV Moderate Sedation Medication:Versed, Fentanyl 12:36:06 Versed 2 mg I.V. was administered by Myrtle Hathaway RN; for sedation; 12:36:13 Fentanyl 50 mcg I.V. was administered by Myrtle Hathaway RN; for sedation; 12:39:06 Procedure started. 12:39:08 Local anesthetic to right femoral artery with Lidocaine 2% by Antony Camacho MD.INITIAL ACCESS ONLY 12:39:15 A 5 Fr sheath was inserted into the Right Femoral artery 12:39:51 A MULTIPACK Pigtail 5 Fr catheter was advanced over the wire and used for Procedure. 12:39:53 LV gram done using DOWNEY 12:39:58 Injector settings: Ml/sec: 10, Volume: 20, 12:40:08 EF : 70 % 12:40:09 Catheter removed. 12:40:39 A MULTIPACK JL 4.0 5Fr catheter was advanced over the wire and used for Procedure. 12:41:18 LCA angiography performed. 12:41:22 Catheter removed. 12:41:27 A MULTIPACK 3DRC 5Fr catheter was advanced over the wire and used for Procedure. 12:42:31 RCA angiography performed. 12:42:38 Catheter removed. 12:43:00 INFLATOR Merit BasixCompak (YC7512) opened to sterile field. 12:43:00 SHEATH 6FR Kiefer (GRS477) opened to sterile field. 12:43:15 CHOICE PT Extra Support 182cm wire ([id number]) opened to sterile field. 12:43:16 GUIDE 6FR XBLAD 4.0 catheter ([id number]) opened to sterile field. 12:43:20 [place]ag[place] IVUS Catheter (88823H) opened to sterile field. 12:43:30 Sheath upsized to a 6 Fr Short. 12:44:11 GUIDE 6FR HS I catheter (LA6HSI) opened to sterile field. 12:44:18 6 Fr HS 1 guide catheter was inserted over the wire 12:44:27 Heparin Bolus 4000 units I.V. was administered by Myrtle Hathaway RN; for anticoagulation; verified with Dr. Camacho 12:44:51 CHOICE ES 182 wire advanced. 12:45:00 Wire advanced across lesion. 12:45:57 WIRE REMOVED. DAMAGED 12:46:07 CHOICE PT Extra Support 182cm wire ([id number]) opened to sterile field. 12:46:11 CHOICE ES 182 wire advanced. 12:46:12 Wire advanced across lesion. 12:46:45 Lopressor 5 mg I.V. was administered by Myrtle Hathaway RN; Per physician; 12:47:33 IVUS catheter advanced over wire. 12:47:38 IVUS catheter removed over wire. 12:47:38 IVUS pass to RCA lesion performed. 12:50:08 Place stent Inflation Number: 1 A ULTRA Rx 4.5 x 28 Stent ([id number]) was prepped and advanced across the Mid RCA. The stent was deployed at 15 GRAY for 0:00 (min:sec). 12:50:13 Stent catheter was removed intact over wire. 12:51:07 EXOSEAL 6Fr (EX600) opened to sterile field. 12:51:13 Wire removed. 12:51:14 Guide catheter removed. 12:51:34 Sheath removed intact; hemostasis achieved with Exoseal to the Right Femoral artery. 12:51:35 Procedure ended.(Physican Out) 12:51:46 Fluoroscopy time 03.10 minutes. 12:51:49 Fluoroscopy dose: 253 mGy 12:51:49 Flurop Dose total: 253 12:52:13 Contrast amount:Isovue 300 69ml. 12:52:15 Sharps counted by scrub and verified by R.N. 12:52:18 Post-op/insertion site Right Femoral artery dressed using a 4 x 4 and Tegaderm. 12:52:21 Post-procedure physical assessment completed. ASA score P 2 - A patient with mild systemic disease as per Antony Camacho MD. 12:52:25 Post procedure rhythm: sinus bradycardia 12:52:27 Estimated blood loss: 10 ml 12:53:49 Patient needs reinforcement of post procedure teaching. 12:53:49 Post procedure instruction explained to patient.Patient verbalizes understanding. 12:54:16 Procedure type changed to Cath procedure, Diagnostic procedure, LHC, LHC w/Coronaries, Sedation Charges, Moderate Sedation up to 15 minutes, PCI procedure, Coronary Stent, Coronary Stent Initial 12:54:58 Procedure and supply charges have been captured, reviewed, submitted and are correct. 12:55:00 Procedure Complication : No complications 12:55:02 See physician's report for complete and final results. 12:55:02 Vital chart was stopped 12:55:05 Report given to [facility]. 12:55:07 Patient transfered to [facility] with Bed. 12:55:09 Full Disclosure recording stopped 12:55:09 Procedure ended. 12:55:11 End room use (Document Last) 12:56:52 Plavix 75 mg P.O. was administered by Myrtle Hathaway RN; for antiplatelet therapy; 13:09:40 FEMSTOP Gold ([id number]) opened to sterile field. 13:10:31 Femstop placed over the right femoral artery at 120 mmHg. Hemostasis achieved. Intervention Summary Intervention Notes Time ActionType Lesion and Equipment Action# Pressure Duration Attributes Used 12:50:08 Place stent Mid RCA ULTRA Rx 1 15 00:00 4.5 x 28 Stent ([id number]) Device Usage Item Name Manufacture Quantity Catalog Number Hospital Part Current Minim al Lot# / Charge Number Stock Stock Serial# Code ACIST Acist 1 02969 243215 170063 270682 20 Syringe Medical (97262) Systems Inc Medline Medline 1 [id number] 283856 43704 653198 5 Cath Pack ([id number]) Bag Microtek 1 2001S 222971 96605 494042 5 Decanter Medical Inc. () ACIST Acist 1 58267 418508 218753 269205 5 Manifold Medical (93015) Systems Inc ACIST Hand Acist 1 97113 027506 674713 218308 5 Control Medical (47043) Systems Inc Tegaderm 4 3M 1 1626W 078006 810616 604029 5 x 4 (1626W) DIAGNOSTIC St Yusef 1 114658 101149 248461 175591 30 WIRE .035 260cm J wire (856166) DIAGNOSTIC Cardinal 1 JI0501 926084 15034 115696 30 Multipack Health 5Fr catheter set (AW5447) SHEATH 5FR Terumo 1 BLW762 088936 572750 478075 5 Kiefer (XJJ726) MULTIPACK Cardinal 1 650626 5 Pigtail 5 Health Fr catheter MULTIPACK Cardinal 1 553288 5 JL 4.0 5Fr Health catheter MULTIPACK Cardinal 1 403413 5 3DRC 5Fr Health catheter SHEATH 6FR Terumo 1 FHL056 615139 100694 799075 40 Kiefer (JCI334) INFLATOR Merit 1 XU6269 150123 854682 426193 15 VirtualQube Medical BasixCompak (KB8624) CHOICE PT Hatch 2 [id number] 051072 307394 698190 5 Extra Scientific Support 182cm wire (0914757Z7) GUIDE 6FR Cardinal 1 [id number] 367130 295367 662246 3 XBLAD 4.0 Health catheter (22353811) [place] 1 81584C 203256 269058 005329 8 [place] Eagleye IVUS Catheter (88912V) GUIDE 6FR Medtronic 1 LA6HSI 219688 85761 549386 1 HS I catheter (LA6HSI) ULTRA Rx Wahl 1 [id number] 352426 714389 510296 5 [id number] 4.5 x 28 Vascular Stent ([id number]) EXOSEAL 6Fr Cardinal 1 EX600 922566 626165 908981 10 (EX600) Health FEMSTOP St Yusef 1 P09666 025813 054139 185109 5 Gold (T06060) Signature Audit [place] Stage Time Signature Unsigned Intra-Procedure 08/04/2018 Kelsie Carr 12:58:08 PM RT(R) RT(R) 08/04/2018 1:09:30 PM Intra-Procedure 08/04/2018 Kelsie Carr 1:10:55 PM RT(R) Signatures Monitor : Kelsie Carr Signature : RT Date : Time : [facility] [address] [address]
--- NOTE | ~2018-08-03 | CN ---
PATIENT NAME:HERMELINDO HATHAWAY MEDICAL RECORD: [id number] : 46 LOCATION:D. D.2125 ADMIT DATE: 08/03/18 ACCOUNT: [id number] CONSULTING PHYSICIAN: FRANKIE GRADY MD REFERRING PHYSICIAN: KAHLIL IROS MD DATE OF CONSULTATION: 08/04/2018 CARDIOLOGY CONSULTATION DATE OF SERVICE: 08/04/2018 DIAGNOSES: 1. Paroxysmal atrial fibrillation. 2. Hypertension. 3. Angina. HISTORY OF PRESENT ILLNESS: Mrs. Hathaway presents with chest heaviness, shortness of breath and just feeling bad. She was found to be in atrial fibrillation. She has surgery last week, was told at that time she was in atrial fibrillation on the preop EKG, but then told during the surgery she was not in atrial fibrillation. Yesterday, the sensation of the palpitations and heaviness came back on her, it was there all day. She presented to the Emergency Room last night. She is now in atrial fibrillation. Heart rate in the 80s. She has a history of hypertension for which she is on amlodipine. No history of ischemic heart disease. PHYSICAL EXAMINATION: GENERAL APPEARANCE: Well-nourished, well-developed, appears stated age. Level of distress, comfortable. PSYCHIATRIC: Mental status, alert, normal affect. Orientation, oriented to time, place and person. EYES: Lids and conjunctiva, noninjected. No discharge, no pallor. ENT: Lips, teeth, gums, normal dentition. Oropharynx, no cyanosis, no pallor. NECK: Carotid arteries, bilateral normal upstroke, no bruits, no thrills. JUGULAR VEINS: No jugular venous pressure or distention. CERVICAL LYMPH NODES: Nontender, nonenlarged. THYROID: Not enlarged. Nontender. No nodules. LUNGS: Respiratory effort, unlabored. CHEST: Normal curvature. No thoracic deformity. No chest wall tenderness. Percussion, resonant. Auscultation, clear. No wheezes, no rales, no rhonchi. CARDIOVASCULAR: Precordial exam, nondisplaced. No heaves or pericardial thrills. Rate and rhythm, regular. Heart sounds, normal S1, normal S2. No S3, no gallop, no rub. Systolic murmur, not heard. Diastolic murmur, not heard. EXTREMITIES: No cyanosis, no edema. Peripheral pulses, full and equal in all extremities, except as noted. No bruits appreciated. ABDOMEN: Soft, nondistended. Normal aorta. No bruit. Nontender. No masses. Liver, nontender, no hepatomegaly. Spleen, nontender, no splenomegaly. MUSCULOSKELETAL: No joint tenderness. No joint swelling. No erythema. NEUROLOGICAL: Normal gait, normal strength, normal tone. SKIN: Warm and dry. OVERALL IMPRESSION: Atrial fibrillation with anginal symptomatology. We will perform cardiac catheterization to evaluate for ischemic nature of the atrial fibrillation, then after that start her on anticoagulation and antiarrhythmics. CONSULT REPORT [id number] HERMELINDO HATHAWAY TRANSINT:[id number] Voice Confirmation ID: [id number] DOCUMENT ID: [id number] FRANKIE GRADY MD CC: [id number] DICTATION DATE: 08/04/18339 SERVICES ACCOUNT MANAGER: 08/04/18403 ADM IN [facility] [address] [id number]
[~2018-08-03 17:31] MED LIST changes: +HYDROCODON-ACE1 EA10 PO
--- NOTE | 2018-08-03 18:19 | NUR ---
RECIVED FROM DR RIOS OFFICE. TO ROOM 2125. PER GAMAL. ADMIT ASSESSMENT PER RN
[2018-08-03 20:00] VITALS: BP 126/70
[2018-08-03 20:38] LABS: BASOPHILS 0.3 % (0-2); EOSINOPHILS 3.6 % (0-7); HEMATOCRIT 36.6 % (36.0-48.0); HEMOGLOBIN 13.3 g/dL (12-16); IMMATURE GRANULOCYTES 0.2 % (0-5); MCH 33.5 pg (26.0-34.0); MCHC 36.3 g/dL (31.0-37.0); MCV 92.2 fL (80.0-100.0); MEAN PLATELET VOLUME 9.2 fL (7.4-10.4); MONOCYTES 8.5 % (2-11); NEUTROPHILS 60.4 % (40-80); RBC 3.97 10x6/uL (4.00-5.40); RDW 13.1 % (11.5-14.5); WBC 5.9 10x3/uL (4.8-10.8)
[2018-08-03 20:41] LABS: PLATELET COUNT 249 10x3/uL (130-400)
[2018-08-03 20:55] LABS: ALKALINE PHOSPHATASE 67 U/L (46-116); ALT (SGPT) 35 U/L (10-68); BILIRUBIN - TOTAL 0.57 mg/dL (0.2-1.3); CALC OSMOLALITY 278 mosm/kg (275-300); CALCIUM 8.9 mg/dL (8.5-10.1); CARBON DIOXIDE 25.8 mmol/L (21.0-32.0); CHLORIDE - SERUM 104 mmol/L (98-107); CREATININE - SERUM 0.7 mg/dL (0.6-1.3); GLUCOSE 123 mg/dL (74-106); PROTEIN - SERUM 6.6 g/dL (6.4-8.2); SODIUM 140 mmol/L (136-145); T4 THYROXIN - FREE 1.23 ng/dL (0.76-1.46); THYROID STIMULATING HORMONE 1.87 uIU/mL (0.36-3.74); TROPONIN-I < 0.017 ng/mL (0.000-0.060); UREA NITROGEN 11 mg/dL (7-18); eGFR NON AFRICAN AMERICAN 88 mL/min (90-120)
[2018-08-03 20:57] LABS: POTASSIUM - SERUM 2.8 mmol/L (3.5-5.1)
--- NOTE | 2018-08-03 21:44 | NUR ---
LAB REPORTED A CRITICAL POTASSIUM OF 2.8. DR. ADAMS NOTIFIED WITH NEW ORDERS FOR ELECTROLYTE PROTOCL. POTASSIUM GIVEN PER PROTOCOL.
[2018-08-03 23:45] VITALS: BP 126/70; BMI 24.4
[2018-08-04 00:30] VITALS: BP 131/71
[2018-08-04 05:00] VITALS: BP 129/83
--- NOTE | 2018-08-04 07:19 | NUR ---
REPORT RECEIVED. WILL CONTINUE WITH POC. PT CURRENTLY LYING SEMI FOWLERS. CALL LIGHT W/I REACH. PT IS AAO AND UP AD AZAM. PT IS NPO STATUS FOR HEART CATH. FAMILY AT BEDSIDE. PIV IS SALINE LOCKED. RR EVEN AND UNLABORED ON RA. PT DENIES ANY NEEDS AT THIS TIME. NO S/S OF DISTRESS NOTED. WILL CTM.
[2018-08-04 08:39] VITALS: BP 130/95
--- NOTE | 2018-08-04 08:54 | NUR ---
RECEIVED VERBAL ORDERS FROM DR. RIOS TO INFUSE 10MEQ POTASSIUM IV. WILL CTM.
[2018-08-04 10:17] VITALS: Ht 167.6 cm; Wt 71.8 kg
[2018-08-04 11:51] VITALS: BP 148/98
--- NOTE | 2018-08-04 13:29 | NUR ---
PT RETURNED FROM [facility]. PERIPHERAL PULSES EVEN BILATERALLY. NS INFUSING @100ML/HR. TELEMETRY ON AND PT IS RUNNING SB @58. FEMSTOP IN PLACE PER [facility]O REGULATOR. NO S/S OF GROWING HEMATOMA. PT IS AAO AND DENIES ANY NEEDS. WILL CTM.
--- NOTE | 2018-08-04 14:06 | NUR ---
I have reviewed this patient and I concur with the Shift Assessment completed by the Licensed Practical Nurse today this shift.
--- NOTE | 2018-08-04 14:44 | NUR ---
DECREASED FEMSTOP PRESSURE TO 75PSI. PERPIPHERAL PULSES EVEN AND BILATERAL. PT DENIES ANY NEEDS. NO S/S OF DISTRESS NOTED. WILL CTM.
[2018-08-04 15:50] VITALS: BP 138/83
--- NOTE | 2018-08-04 17:15 | NUR ---
FEM STOP REMOVED. NO S/S OF HEMATOMA PRESENT. PT UP AND EATING DINNER. PERIPHERAL PULSES EVEN AND BILATERAL. NO S/S OF DISTRESS NOTED. WILL CTM.
--- NOTE | 2018-08-04 19:38 | NUR ---
ASSESSMENT COMPLETE, PT A&O. RESPERATIONS EVEN ON RA. IV TO LEFT ARM SL. IV SITE CLEAN AND DRY. DRSG TO RIGHT GROIN INTACT. NO SWELLING, BLEEDING OR HEMATOMA NOTED. PEDAL PULSES PRESENT. PT CURRENTLY DENIES PAIN OR NEEDS, BED LOW, CL IN REACH. PT STATED UNDERSTANDING OF NOTHING TO EAT OR DRINK AFTER MN FOR CARDIAC CATH TO BE DONE IN THE AM.
[2018-08-04 20:00] VITALS: BP 117/79; BP 118/69
--- NOTE | 2018-08-04 21:06 | NUR ---
HS MEDS GIVEN WITH FRESH ICE WATER, PT DENIES PAIN OR NEEDS.
--- NOTE | 2018-08-05 00:23 | NUR ---
RESTING WITH EYES CLOSED, RESPERATIONS EVEN, NO S/S DISTRESS NOTED.
[2018-08-05 00:30] VITALS: BP 118/69
[2018-08-05 04:30] VITALS: BP 123/64
--- NOTE | 2018-08-05 05:12 | NUR ---
I have reviewed this patient and I concur with the Shift Assessment completed by the Licensed Practical Nurse today this shift.
[2018-08-05 06:44] LABS: CALC OSMOLALITY 287 mosm/kg (275-300); CALCIUM 8.8 mg/dL (8.5-10.1); CARBON DIOXIDE 27.4 mmol/L (21.0-32.0); CHLORIDE - SERUM 109 mmol/L (98-107); CREATININE - SERUM 0.8 mg/dL (0.6-1.3); GLUCOSE 101 mg/dL (74-106); POTASSIUM - SERUM 4.3 mmol/L (3.5-5.1); SODIUM 144 mmol/L (136-145); eGFR NON AFRICAN AMERICAN 75 mL/min (90-120)
[2018-08-05 06:55] LABS: UREA NITROGEN 15 mg/dL (7-18)
--- NOTE | 2018-08-05 07:35 | NUR ---
ASSESSMENT COMPLETED. ALERT AND ORIENTED. DENIES ANY NEEDS. NPO FOR CATH. DRSG TO RIGHT GROIN DRY AND INTACT. UP AB AZAM. TELEMERTY SHOWS SR. CALL LIGHT IN REACH WITH SR UP
[2018-08-05 08:33] VITALS: BP 117/74
[2018-08-05 11:48] VITALS: BP 122/72
--- NOTE | 2018-08-05 13:08 | NUR ---
PT BACK FROM POWDER OPERATOR. ALERT AND ORIENTED. LEFT GROIN SOFT WITH DRSG DRY AND INTACT. PPP. V/S STABLE. TELEMERTY SHOWS SR. SR UP WITH CALL LIGHT IN REACH
[2018-08-05] MEDS ORDERED: BETAPACE 80 MG80 MG PO (13:20)
[2018-08-05] MEDS ORDERED: PLAVIX75 MG PO (13:20)
[2018-08-05] MEDS ORDERED: XANAX0.25 MG PO (13:21)
[2018-08-05] MEDS ORDERED: ASPIRIN81 MG PO (13:21)
[2018-08-05 15:52] VITALS: BP 116/64
--- NOTE | 2018-08-05 17:35 | MORECARE ---
CASE MANAGEMENT DISCHARGE SUMMARY PATIENT: HERMELINDO HATHAWAY UNIT: [id number] ADM DATE: 08/04/18 AGE: 68 : 48 SEX: F ROOM/BED: D.5338 AUTHOR: ANTONIETA HERNANDEZ PHYSICIAN: REFERRING PHYSICIAN: KAHLIL RIOS MD DATE OF SERVICE: 08/05/18 Discharge Plan Patient Name: HERMELINDO HATHAWAY [facility] [facility] 1950 Planned Disposition: Home Anticipated Discharge Date: 08/05/18 Discharge Date: Expected LOS: 1 Initial Reviewer: [email or web address] Initial Review Date: 08/05/2018 Generated: 08/05/18 6:35 pm Patient Name: HERMELINDO HATHAWAY Page [id number] at 173 All edits/amendments must be made on the electronic document DICTATION DATE: 08/05/181734 SALMON TROLL FISHER: LORNA 08/05/181734 RPT#: [id number] DC DATE: STATUS: ADM IN [facility] [address] [place] [address] END OF REPORT
--- NOTE | 2018-08-05 17:44 | MORECARE ---
CASE MANAGEMENT DISCHARGE SUMMARY PATIENT: HERMELINDO HATHAWAY UNIT: [id number] ADM DATE: 08/04/18 AGE: 68 : 48 SEX: F ROOM/BED: D.4808 AUTHOR: MARYDOC PHYSICIAN: REFERRING PHYSICIAN: KAHLIL RIOS MD DATE OF SERVICE: 08/05/18 Discharge Plan Patient Name: HERMELINDO HATHAWAY Facility: [facility]:[place] : 1950 Planned Disposition: Home Anticipated Discharge Date: 08/05/18 Discharge Date: Expected LOS: 1 Initial Reviewer: [email or web address] Initial Review Date: 08/05/2018 Generated: 08/05/18 6:43 pm Comments DCP- Discharge Planning Updated by [email or web address]: Kevyn Merrill on 08/05/18 4:[address] Patient Name: HERMELINDO HATHAWAY Admission Status: Elective Accout number: [id number] Admission Date: 08-04-2018 : 1950 Admission Diagnosis:CHEST PAIN, UNSPECIFIED Attending: KAHLIL RIOS Current LOS: 1 Anticipated DC Date: 08-05-2018 Planned Disposition: Home Primary Insurance: MEDICARE A & B Discharge Planning Comments: CM MET WITH PT IN ROOM TO DISCUSS DISCHARGE PLANNING AND NEEDS. PT REPORTS LIVING AT HOME INDEPENDENTLY AND ALONE BUT HAS BEEN STAYING WITH HER SISTER AND WILL RETURN TO HER SISTERS HOME FOR CONTINUED RECOVERY AT DISCHARGE. PT HAS GLUCOMETER WITH NO MEDICAL EQUIPMENT PROVIDER PREFERENCE. PT HAS NO OUTSIDE SERVICES ASSISTING IN THE HOME. CM DISCUSSED AVAILABILITY OF HOME HEALTH, REHAB SERVICES AND MEDICAL EQUIPMENT. PT DENIES DISCHARGE NEEDS, REPORTS HER DAUGHTER WILL PICK HER UP FOR DISCHARGE HOME. Make Up Editor: Kevyn Merrill DCPIA - Discharge Planning Initial Assessment Updated by [email or web address]: Kevyn Merrill on 08/05/18 5:36 pm * Is the patient Alert and Oriented? Yes * How many steps to enter\exit or inside your home? * PCP DR. RIOS * Pharmacy [facility]POR[facility] BASIS * Preadmission Environment Home with Family * ADLs Independent * Equipment Glucometer * Other Equipment NO MEDICAL EQUIPMENT PROVIDER PREFERENCE * List name and contact numbers for known caregivers / representatives who currently or will assist patient after discharge: MADAI PETERSON DTR, * Verbal permission to speak to the caregivers and representatives has been obtained from the patient. N/A * Community resources currently utilized None * Please name any agencies selected above. NONE * Additional services required to return to the preadmission environment? No * Can the patient safely return to the preadmission environment? Yes * Has this patient been hospitalized within the prior 30 days at any hospital? Yes Last DP export: 08/05/18 4:35 p Patient Name: HERMELINDO HATHAWAY Page [id number] at 1744 All edits/amendments must be made on the electronic document DICTATION DATE: 08/05/181742 COMPUTER SUPPORT ANALYST: LORNA 08/05/181742 RPT#: [id number] DC DATE: STATUS: ADM IN [facility] [address] [place] [address] END OF REPORT
--- NOTE | 2018-08-09 21:10 | HP ---
PATIENT: HERMELINDO HATHAWAY MEDICAL RECORD: [id number] ACCOUNT: [id number] LOCATION:[address] : 46 ADMISSION DATE: 08/04/18 PCP: KAHLIL RIOS MD HISTORY AND PHYSICAL EXAMINATION DATE OF ADMISSION: 08/03/2018 CHIEF COMPLAINT: Palpitations, tingling in hands for 2 days. HISTORY: This is a 68-year-old female followed by Dr. Rios, who presents complaining of palpitations off and on over the last couple of days at home. She underwent hand-assisted laparoscopic right hemicolectomy a week ago here at [facility] and was discharged on July 30. She has a history of hypertension, but her blood pressure was doing so well off of antihypertensives after that surgery that she was sent home without bisoprolol, lisinopril, and amlodipine. She has been checking her blood pressure at home and it has remained stable. Her heart rate has been in the mid 80s up into the low 90s. She has not had any kind of chest pain. When asked, she denied any history of heart trouble; however, she states that just before her surgery last week, somebody asked her if she had atrial fibrillation. I am not sure if an EKG was done. I am not able to find it in the medical records. In my office, she had irregularly irregular heart rate, consistent with atrial fibrillation. She is a little anxious and with the symptoms of palpitations, numbness, and tingling in her hands, she is directly admitted to [facility] now for further evaluation. Cardiology is consulted. PAST MEDICAL AND SURGICAL HISTORY: Hypertension, high cholesterol, and osteoarthritis. 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 She has also had sinus surgery. ALLERGIES: BEE STINGS AND WASP VENOM. HOME MEDICATIONS: Xanax 0.25 mg t.i.d. p.r.n. anxiety. This was a temporary prescription. She has been on bisoprolol/hydrochlorothiazide 5/6.25 once a day, lisinopril 20 mg three pills once a day, and amlodipine 5 one-half a day. She takes Pepcid daily. HABITS: No alcohol or drugs. She does not smoke. FAMILY HISTORY: Father of cancer. Mother , she had hypertension. Brother of lung cancer. Sister is alive with arthritis. REVIEW OF SYSTEMS: GENERAL: No major weight changes. HEENT: No particular sinus or allergy problems. RESPIRATORY: No history of emphysema or asthma. GASTROINTESTINAL: See above history with positive colonoscopy and surgery one week ago today. GENITOURINARY: No significant problems there. MUSCULOSKELETAL: She has had arthritic aches and pains. NEUROLOGIC: No seizures or migraines. PSYCHIATRIC: She has had little anxiety recently. PHYSICAL EXAMINATION: HISTORY AND PHYSICAL [id number] HERMELINDO HATHAWAY VITAL SIGNS: She was afebrile in our office. Her heart rate was around 90 and irregularly irregular. Her blood pressure was 124/82. GENERAL: She is in no acute distress. SKIN: Warm and dry. HEENT: Grossly within normal limits. NECK: Supple. No bruit. HEART: Irregularly irregular with a controlled rate. LUNGS: Clear. ABDOMEN: Soft and nontender. EXTREMITIES: No edema. NEUROLOGIC: Intact. ASSESSMENT: Atrial fibrillation with normal heart rate. PLAN: After discussion with the patient, she felt more comfortable actually going into the hospital though she really did not want to be admitted into the hospital. I was quite surprised at this. We will start her on Lovenox, place her on telemetry, and check lab. Cardiology has been consulted. Pepcid for stress ulcer prevention. Other tests and procedures as warranted. TRANSINT:[id number] Voice Confirmation ID: [id number] DOCUMENT ID: [id number] KIMBERLY ADAMS MD at 2110 CC: [id number] DICTATION DATE: 08/03/181920 EMBEDDED LINUX ENGINEER: 08/03/18 2012 DIS IN 08/05/18 [facility] [address] [place] [address]
== END 2018-08-05 15:55 | disposition home or self-care (01) | DRG 249 ==
LOC: D.M2 17:31 → OBSVTIME 18:03 → D.M2 18:03
PROVIDERS: Internal Medicine Interventional Cardiology; ADMIT Family Medicine; ATTEND Family Medicine
PROC: 4A023N7 Measurement of Cardiac Sampling and Pressure, Left Heart, Percutaneous Approach (ICD-10-PCS; 2018-08-04)
PROC: B2111ZZ Fluoroscopy of Multiple Coronary Arteries using Low Osmolar Contrast (ICD-10-PCS; 2018-08-04)
PROC: B2151ZZ Fluoroscopy of Left Heart using Low Osmolar Contrast (ICD-10-PCS; 2018-08-04)
PROC: 02703DZ Dilation of Coronary Artery, One Artery with Intraluminal Device, Percutaneous Approach (ICD-10-PCS; principal; 2018-08-04 12:00)
PROC: 02703DZ Dilation of Coronary Artery, One Artery with Intraluminal Device, Percutaneous Approach (ICD-10-PCS; 2018-08-05)
PROC: B240ZZ3 Ultrasonography of Single Coronary Artery, Intravascular (ICD-10-PCS; 2018-08-05)
DX: I25.119 Atherosclerotic heart disease of native coronary artery with unspecified angina pectoris (principal); I48.0 Paroxysmal atrial fibrillation; I10 Essential (primary) hypertension; E87.6 Hypokalemia

== ENCOUNTER → 2018-08-25 09:18 | Outpatient (CLI) | payer MEDICARE, OTHER ==
[2018-08-04 10:17] VITALS: BMI 24.3
[~2018-08-25 09:18] MED LIST changes: +ASPIRIN81 MG PO; +BETAPACE 80 MG80 MG PO; +PLAVIX75 MG PO
== END | disposition home or self-care (01) ==
LOC: D.MRI 07-26 10:00
PROVIDERS: ATTEND Internal Medicine Gastroenterology
DX: R93.2 Abnormal findings on diagnostic imaging of liver and biliary tract (principal)

== ENCOUNTER → 2018-11-01 12:02 | Outpatient (CLI) | payer MEDICARE, OTHER ==
[2018-08-04 10:17] VITALS: BMI 24.3
[2018-11-01 12:34] LABS: BASOPHILS 0.2 % (0-2); EOSINOPHILS 2.3 % (0-7); HEMATOCRIT 39.4 % (36.0-48.0); MCH 34.2 pg (26.0-34.0); MCHC 35.5 g/dL (31.0-37.0); MCV 96.3 fL (80.0-100.0); MEAN PLATELET VOLUME 9.4 fL (7.4-10.4); MONOCYTES 9.6 % (2-11); NEUTROPHILS 61.9 % (40-80); RBC 4.09 10x6/uL (4.00-5.40); RDW 12.9 % (11.5-14.5); WBC 4.7 10x3/uL (4.8-10.8)
[2018-11-01 12:36] LABS: PLATELET COUNT 192 10x3/uL (130-400)
[2018-11-01 14:06] LABS: ALBUMIN 3.3 g/dL (3.4-5.0); BILIRUBIN - DIRECT 0.13 mg/dL (0.00-0.30); BILIRUBIN - INDIRECT 0.36 mg/dL (0.00-1.00); BILIRUBIN - TOTAL 0.49 mg/dL (0.2-1.3)
== END | disposition home or self-care (01) ==
LOC: D.LAB 11:57 → EDSTATUS 12:02 → D.LAB 12:02
PROVIDERS: ATTEND Surgery
DX: Z85.038 Personal history of other malignant neoplasm of large intestine (principal)

== ENCOUNTER → 2019-05-04 11:09 | Outpatient (CLI) | payer MEDICARE, OTHER ==
[2018-08-04 10:17] VITALS: BMI 24.3
[2019-05-04 11:39] LABS: BASOPHILS 0.4 % (0-2); EOSINOPHILS 3.5 % (0-7); HEMOGLOBIN 15.2 g/dL (12-16); IMMATURE GRANULOCYTES 0.4 % (0-5); MCH 33.8 pg (26.0-34.0); MCHC 35.3 g/dL (31.0-37.0); MCV 95.6 fL (80.0-100.0); MEAN PLATELET VOLUME 8.7 fL (7.4-10.4); MONOCYTES 8.3 % (2-11); NEUTROPHILS 54.4 % (40-80); PLATELET COUNT 234 10x3/uL (130-400); WBC 5.1 10x3/uL (4.8-10.8)
[2019-05-04 11:49] LABS: ALBUMIN 3.4 g/dL (3.4-5.0); BILIRUBIN - DIRECT 0.09 mg/dL (0.00-0.30); BILIRUBIN - INDIRECT 0.42 mg/dL (0.00-1.00); BILIRUBIN - TOTAL 0.51 mg/dL (0.2-1.3)
== END | disposition home or self-care (01) ==
LOC: D.LAB 11:09
PROVIDERS: ATTEND Surgery
DX: C18.3 Malignant neoplasm of hepatic flexure (principal)

== ENCOUNTER → 2019-09-13 23:18 | Outpatient (CLI) | payer MEDICARE, OTHER ==
[2018-08-04 10:17] VITALS: BMI 24.3
== END | disposition home or self-care (01) ==
LOC: D.MAMMO 11:45
PROVIDERS: ATTEND Family Medicine
DX: Z12.31 Encounter for screening mammogram for malignant neoplasm of breast (principal)

== ENCOUNTER → 2019-11-01 14:52 | Outpatient (CLI) | payer MEDICARE, OTHER ==
[2018-08-04 10:17] VITALS: BMI 24.3
== END | disposition home or self-care (01) ==
LOC: D.LAB 14:52
PROVIDERS: ATTEND Internal Medicine Gastroenterology
DX: Z85.038 Personal history of other malignant neoplasm of large intestine (principal); Z80.0 Family history of malignant neoplasm of digestive organs

== ENCOUNTER → 2019-11-21 12:37 | Outpatient (CLI) | payer MEDICARE, OTHER ==
[2018-08-04 10:17] VITALS: BMI 24.3
== END | disposition home or self-care (01) ==
LOC: D.NM 12:37
PROVIDERS: ATTEND Family Medicine
DX: K81.9 Cholecystitis, unspecified (principal)

== ENCOUNTER → 2020-06-20 10:20 | Outpatient (CLI) | payer MEDICARE, OTHER ==
[2018-08-04 10:17] VITALS: BMI 24.3
== END | disposition home or self-care (01) ==
LOC: D.HCCECHO 10:20
PROVIDERS: ATTEND Internal Medicine Cardiovascular Disease
DX: I25.10 Atherosclerotic heart disease of native coronary artery without angina pectoris (principal)

== ENCOUNTER → 2020-06-29 11:19 | Outpatient (CLI) | payer MEDICARE, OTHER ==
[2018-08-04 10:17] VITALS: BMI 24.3
== END | disposition home or self-care (01) ==
LOC: D.CT 06-27 11:30
PROVIDERS: ATTEND Internal Medicine Gastroenterology
DX: K57.30 Diverticulosis of large intestine without perforation or abscess without bleeding (principal); R63.4 Abnormal weight loss; R10.13 Epigastric pain

== ENCOUNTER 2020-09-25 10:45 | Outpatient (CLI) | payer MEDICARE, OTHER ==
[2018-08-04 10:17] VITALS: BMI 24.3
== END 2020-09-25 23:59 ==
LOC: D.MAMMO 10:45
PROVIDERS: ATTEND Family Medicine
DX: Z12.31 Encounter for screening mammogram for malignant neoplasm of breast (principal)